=== PATIENT | male | born 1980 | race Caucasian/White ===

== ENCOUNTER 2023-04-29 18:25 | Emergency (ER) | payer OTHER, SELFPAY ==
--- NOTE | ~2023-04-29 | XR_ITS ---
EXAMINATION: XR hand LT 2V DATE: 04/29/2023 20:37 INDICATION: Left hand laceration. TECHNIQUE: 2 views of left hand were obtained. COMPARISON: None. FINDINGS: Bone alignment is normal. No fracture. Joint spaces are normal. No radiopaque foreign body. IMPRESSION: 1. No fracture or radiopaque foreign body. Reviewed, dictated and finalized at location E.
[2023-04-29 18:32] VITALS: BP 145/96; PULSE 103; RESP 18; TEMP 36.4; O2SAT 98
--- NOTE | 2023-04-29 20:55 | ED.WOUNDLAC ---
HPI - Wound/Laceration General Chief Complaint: Wound/Laceration Stated Complaint: hand laceration Time Seen by Provider: 04/29/23 20:09 Source: patient and family History of Present Illness HPI narrative: Pt presents with multiple lacerations to left hand. R hand dominant. His deep freezer stopped working and there was rotting meat inside causing odor in house. IN attempting to move it out of the house, he lifted it and something metal cut him across palmar aspect of multiple fingers. Denies paresthesias initially but then states perhaps diminished sensation in left 5th digit/pinky. Can not recall last tetnaus but believes it has been approximately 10 years. Pain 10/20 severity. Related Data Allergies Allergy/AdvReac Type Severity Reaction Status Date / Time Grass Allergy Unknown Uncoded 04/15/14 15:45 Molds and Smuts Allergy Unknown Uncoded 04/15/14 15:45 Exam Const: General: healthy appearing, no acute distress and alert; No diaphoretic or ill appearing Nutritional Appearance: well nourished Limitations: no limitations HENMT: Head: normal to inspection Other: gross auditory acuity intact Eyes: Conjunctivae: conjunctivae normal Resp: Effort & Inspection: normal respiratory effort and no use of accessory muscles Cardio: Rate: tachycardic Other: 2+ radial pulse. Brisk cap refill in all fingers Skin: Wounds: wounds noted Other: Approx 1cm lacerations at left 5th digit distal to DIP, at left 3rd digit between DIP and PIP, and at left index finger between DIP and PIP across palmar surface of all digits. Patient also has a barely noticeable superficial laceration between DIP and PIP of 4th digit. Neuro: Other: Sensation intact throughout hand though patient states perhaps slightly diminished at distal pinky Extrem: Other: Able to perform full flexion and extension of fingers but hand not held in fixed flexion/extension. Able ot make peace, OK sign and oppose digits to thumb Psych: Mental Status: mental status grossly normal Affect: normal affect, No Sad affect present and No Anxious affect present Attitude: cooperative Course Vital Signs Vital signs: Vital Signs Temperature 97.6 F 04/29/23 18:32 Pulse Rate 103 H 04/29/23 18:32 Respiratory Rate 18 04/29/23 18:32 Blood Pressure 145/96 H 04/29/23 18:32 Pulse Oximetry 98 04/29/23 18:32 Oxygen Delivery Room Air 04/29/23 18:32 Temperature 97.6 F 04/29/23 18:32 Pulse Rate 103 H 04/29/23 18:32 Respiratory Rate 18 04/29/23 18:32 Blood Pressure 145/96 H 04/29/23 18:32 Pulse Oximetry 98 04/29/23 18:32 Oxygen Delivery Room Air 04/29/23 18:32 Procedures Laceration Laceration 1: Date: 04/29/23 Site: hand Side (If applicable): left Size (cm): 1 Description: linear Depth: simple, single layer Local Anesthetic: lidocaine 1% Amount of anesthesia used (mL): 1 Pre-repair: irrigated ====== Skin Level ====== Skin layer closed with: other (EThilon) Size (cm): 5-0 Number of sutures: 2 Technique: simple, interrupted ====== Subcutaneous Layer ====== ====== Muscle Layer ====== ====== Tendon Layer ====== Laceration 2: Date: 04/29/23 Site: hand Side (If applicable): left Size (cm): 1 Description: linear Depth: simple, single layer Local Anesthetic: lidocaine 1% Amount of anesthesia used (mL): 1 Pre-repair: irrigated ====== Skin Level ====== Skin layer closed with: other (Ethilon) Size (cm): 5-0 Number of sutures: 2 Technique: simple, interrupted ====== Subcutaneous Layer ====== ====== Muscle Layer ====== ====== Tendon Layer ====== Laceration 3: Date: 04/29/23 Site: hand Side (If applicable): left Size (cm): 1 Description: linear Depth: simple, single la
[2023-04-29] MEDS: TETANUS,DIPHTHERIA,AC PERTUSSIS ADULT (0.5 ML) BOOSTRIX IM (21:24)
[2023-04-29] MEDS: LIDOCAINE HCL 1% LOCAL INJ 10 ML VIAL (21:24)
[2023-04-29] MEDS: ACETAMINOPHEN 500 MG TABLET 1000 MG PO (21:25)
== END 2023-04-29 21:59 | disposition home or self-care (01) ==
PROVIDERS: Emergency Provider Student in an Organized Health Care Education/Training Program
DX: S61.411A Laceration without foreign body of right hand, initial encounter (principal); Z23 Encounter for immunization; W45.8XXA Other foreign body or object entering through skin, initial encounter
CPT/HCPCS: 12002; 73120; 90471; 90715; 99283; A9270